=== PATIENT | female | born 1940 ===

== ENCOUNTER 2021-06-06 21:02 | Emergency (ER) | payer OTHER ==
[~2021-06-06] VITALS: Ht 149.9 cm; Wt 72.6 kg
[2021-06-06] MEDS ORDERED: TENORMIN50 M1 PO (21:09)
[2021-06-06] MEDS ORDERED: SERTRALINE20 MG/1 ML PO (21:09)
[2021-06-06] MEDS ORDERED: BUSPIRONE HCL7.5 MG PO (21:10)
[2021-06-06] MEDS ORDERED: TRAZODONE HCL150 MG PO (21:10)
[2021-06-06] MEDS ORDERED: SIMVASTATIN5 MG PO (21:10)
[2021-06-06] MEDS ORDERED: PRILOSEC OTC20 MG PO (21:11)
[2021-06-06] MEDS ORDERED: GABAPENTIN300 MG (21:11)
[2021-06-07] MEDS ORDERED: LEVALBUTER1.25 MG/3 IH (02:19)
[2021-06-07] MEDS ORDERED: BUDESONIDE0.5 MG/2 M IH (02:19)
== END 2021-06-07 03:46 | disposition home or self-care (01) ==
LOC: ER 21:02
DX: J45.901 Unspecified asthma with (acute) exacerbation (principal); R06.02 Shortness of breath; Z03.818 Encounter for observation for suspected exposure to other biological agents ruled out